=== PATIENT | female | born 1970 | race Caucasian/White ===

== ENCOUNTER 2016-11-16 13:45 | Emergency (ER) | payer OTHER ==
--- NOTE | ~2016-11-16 | CR252 ---
[facility] A Service of [facility] RADIOLOGY TEXT RESULTS PATIENT: MICHAEL BENSON LOCATION: [place] : 72 UNIT #: [id number] AGE: [address]: Lexie Parker APRN SEX: F ORDER DR: [id number] [facility] [address] [place], [place] [address] [id number] MR#: [id number] Acc #: [id number] NAME: MICHAEL BENSON : 1970 SEX: F STUDY DATE/TIME: 11/16/2016 14:33 UNIT: [place] ROOM: STUDY DESCRIPTION: CR Tibia and Fibula 2 Views Lt Attending Physician: Lexie Parker A.P.R.N. Ordering Physician: Ed Doctor [id number] [facility] Primary Care Physician: Generic Doctor Not In System MEDICAL IMAGING REPORT This report is preliminary unless electronic signature is present EXAM Left tibia and fibula HISTORY Leg pain chronically over the past 2 years. Chronic osteomyelitis. COMPARISON 01/02/2016 TECHNIQUE 2 views of the tibia and fibula were obtained. FINDINGS Alignment and position is unchanged from the previous examination. There is a chronic malunited fracture of the proximal tibia with reactive bony changes consistent with chronic osteomyelitis. Since the previous examination increased bone stock is seen across both sides of the malunion and the lytic band across the tibial shaft is less prominent. There is no evidence of any new lesions. No progressive periosteal reaction is seen. IMPRESSION Evidence of some progressive healing since the previous examination with increased bone density and thickness along both sides of the malunion. No new focal bony lesions are seen. STAT * RESULT Dictated by... Arpit Ahmadi M.D. [facility] A Service of [facility] RADIOLOGY TEXT RESULTS PATIENT: MICHAEL BENSON LOCATION: [facility] : 72 UNIT #: [id number] AGE: [address]: Lexie Parker APRN SEX: F ORDER DR: THIS IS AN ELECTRONICALLY VERIFIED REPORT Arpit Ahmadi M.D. at 11/16/2016 4:54 PM MELINA/chidi TD: 11/16/2016 15:10 JOB #: [id number] MEDICAL IMAGING REPORT Page 1 of 1 COPY
[~2016-11-16 13:45] MED LIST: ALBUTEROL; AMLODIPINE BESYL5 MG PO; ANUSOL SUPP1 SUPP; CLINDAMYCIN HC300 MG PO; EC-NAPROSYN500 MG PO; EFFEXOR75 M1 PO; FLAGYL PO; FLONASE 0.05% N16 G1; LEVAQUIN PO; LISINOPRIL20 MG PO; LORTAB 10-5001 EACH PO; LORTAB 5/500 TA1 TA1 PO; NEXIUM PO; PHENERGAN25 MG PO; REQUIP5 MG PO; SYMBICORT; ZYRTEC10 M2 PO
== END 2016-11-16 15:39 | disposition home or self-care (01) ==
LOC: CFTX 13:45 → CED 13:45 → CFTX 14:23
DX: L03.116 Cellulitis of left lower limb (principal); I10 Essential (primary) hypertension; J44.9 Chronic obstructive pulmonary disease, unspecified; F17.210 Nicotine dependence, cigarettes, uncomplicated
CPT/HCPCS: 73590; 99283